=== PATIENT | female | born 1975 | race Caucasian/White ===

== ENCOUNTER 2016-07-21 09:40 | Emergency (ER) | payer SELFPAY ==
[2016-07-21 09:46] VITALS: BP 147/99
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
--- NOTE | 2016-07-21 10:32 | RAD ---
INDICATION: Left knee injury. TECHNIQUE: 4 views of the left knee were obtained. FINDINGS: The bones are in normal alignment. No joint effusion or fracture is seen. Joint spaces appear maintained. IMPRESSION: NO EVIDENCE FOR FRACTURE.
== END 2016-07-21 10:36 | disposition home or self-care (01) ==
LOC: ED 09:40
DX: M25.562 Pain in left knee (principal); V89.2XXA Person injured in unspecified motor-vehicle accident, traffic, initial encounter; Y93.9 Activity, unspecified; Y92.9 Unspecified place or not applicable
CPT/HCPCS: 99281

== ENCOUNTER 2017-01-09 09:21 | Emergency (ER) | payer BC ==
[2017-01-09] MEDS ORDERED: NS 0.9% 1000 ML* 2,000 ML IV ONE (10:10)
[2017-01-09 10:46] LABS: Hematocrit 39 % (35-47); Hemoglobin 13.4 g/dl (12.0-16.0); Mean Corpuscular HGB Conc 34 g/dl (31-36); Mean Corpuscular Hemoglobin 30 pg (27-31); Mean Corpuscular Volume 88 fL (80-97); Mean Platelet Volume 9 um3 (7.4-10.4); Red Blood Count 4.47 10^6/ul (4.0-5.4); Red Cell Distribution Width 13 % (10.5-15)
--- NOTE | 2017-01-09 10:59 | RAD ---
INDICATION: Cough, chest congestion, weakness. COMPARISON: No relevant prior exams available on the [facility] for comparison. TECHNIQUE: Dual energy PA and routine lateral views of the chest were obtained. REPORT: Mild prominence of the interstitial markings and upper lung zone rarefaction. No alveolar consolidation, focal pulmonary lesion, pleural effusion, pneumothorax. The heart, pulmonary vasculature, and mediastinal contours are unremarkable. Gallbladder fossa surgical clips. Unremarkable soft tissue contours and osseous structures. IMPRESSION: 1. Stigmata of potential obstructive lung disease. 2. No compelling evidence for pneumonia.
[2017-01-09 11:03] LABS: Albumin 3.7 g/dL (3.2-5.2); BUN/Creatinine Ratio 10.7 (8-20); C Reactive Protein 93.09 mg/L (< 5.00); Calcium 9.2 mg/dL (8.6-10.3); EGFR Non-African American 84.7 (>60); Globulin 3.2 g/dL (2-4); Magnesium 1.9 mg/dL (1.9-2.7); Potassium 3.3 mmol/L (3.5-5.0); Total Bilirubin 0.4 mg/dL (0.2-1.0); Total Protein 6.9 g/dL (6.4-8.9)
[2017-01-09 11:04] LABS: Urine Bilirubin Negative (Negative); Urine Glucose Negative (Negative); Urine Nitrite Negative (Negative)
[2017-01-09 11:31] LABS: TSH (Thyroid Stimulating Horm) 3.79 mcIU/mL (0.34-5.60)
[2017-01-09] MEDS ORDERED: Potassium Chlor TAB* 20 MEQ TAB.ER PO ONE (12:37)
[2017-01-09 13:06] VITALS: BP 104/61
--- NOTE | 2017-01-10 08:37 | ED ---
Kenneth Mehta Angela, scribed for Dg Aleman MD on 01/09/17 at 1007 . Complex/Multi-Sys Presentation - HPI Summary HPI Summary: This pt is a 41 y/o female presenting to [facility] c/o general malaise, fatigue, body aches, fevers over the last 1.5 weeks. Pt states she went to [facility] in [place] 2 days ago (on Sunday) and was prescribed doxycycline. She notes no improvement with doxycycline. Pt reports associated symptoms of sore throat, headaches, neck pain, back ache, swollen glands. Pt notes she couldn't swallow for a couple of days secondary to swollen glands. Today she c/o chest pain and non-productive cough. She denies nausea, vomiting, diarrhea, dysuria, post nasal drip, ear ache. Pt notes her sore throat has almost resolved. Pt has also taken ibuprofen and Nyquil. - History Of Current Complaint Chief Complaint: EDGeneral Time Seen by Provider: 01/09/17 09:58 Hx Obtained From: Patient Onset/Duration: Gradual Onset, Lasting Days, Still Present Timing: Constant, Days Location: Pain At: - body aches Associated Signs And Symptoms: Positive: Headache, Cough - non-productive, Chest Pain, Back Pain, Fever, Other - general malaise, body aches, sore throat, neck pain, swollen glands. Negative: Nausea, Vomiting, Diarrhea, Dysuria - Allergies/Home Medications Allergies/Adverse Reactions: Allergies Allergy/AdvReac Type Severity Reaction Status Date / Time Oxycodone [From Percocet] Allergy Anaphylatic Verified 01/09/17 09:46 Shock PMH/Surg Hx/FS Hx/Imm Hx Endocrine/Hematology History: Denies: Hx Anticoagulant Therapy Cardiovascular History: Denies: Hx Hypertension Infectious Disease History: No Infectious Disease History: Denies: Traveled Outside the [place] in Last 30 Days - Family History Known Family History: Positive: Hypertension - Social History Alcohol Use: Occasionally Substance Use Type: Reports: None Smoking Status (MU): Never Smoked Tobacco Review of Systems Constitutional: Other - general malaise Positive: Fever, Fatigue. Negative: Chills ENT: Other - swollen glands Positive: Sore Throat - almost resolved now. Negative: Ear Ache, Other - post nasal drip Positive: Chest Pain Positive: Cough - non-productive Negative: Vomiting, Diarrhea, Nausea Negative: dysuria Musculoskeletal: Other - neck pain, back pain Positive: Myalgia Positive: Headache All Other Systems Reviewed And Are Negative: Yes Physical Exam - Summary Physical Exam Summary: VITAL SIGNS: Reviewed. GENERAL: Patient is a well-developed female, who appears tired and fatigued, lying comfortable in the stretcher. Patient is not in any acute respiratory distress. HEAD AND FACE: No signs of trauma. No ecchymosis, hematomas or skull depressions. No sinus tenderness. EYES: PERRLA, EOMI x 2, No injected conjunctiva, no nystagmus. EARS: Hearing grossly intact. Ear canals and tympanic membranes are within normal limits. MOUTH: Oropharynx within normal limits. NECK: Supple, trachea is midline, no adenopathy, no JVD, no carotid bruit, no c- spine tenderness, neck with full ROM. CHEST: Symmetric, no tenderness at palpation LUNGS: Clear to auscultation bilaterally. No wheezing or crackles. CVS: Regular rate and rhythm, S1 and S2 present, no murmurs or gallops appreciated. ABDOMEN: Soft, non-tender. No signs of distention. No rebound no guarding, and no masses palpated. Bowel sounds are normal. EXTREMITIES: FROM in all major joints, no edema, no cyanosis or clubbing. NEURO: Alert and oriented x 3. No acute neurological deficits. Speech is normal and follows commands. SKIN: Dry and warm Triage Information Reviewed: Yes Vital Signs On Initial Exam: Initial Vitals Temp Pulse Resp BP Pulse Ox 98.4 F 70 18 136/89 98 01/09/17 09:24 01/09/17 09:24 01/09/17 09:24 01/09/17 09:24 01/09/17 09:24 Vital Signs Reviewed: Yes - Rajesh Coma Scale Coma Scale Total: 15 Diagnostics - Vital Signs Vital Signs Temp Pulse Resp BP Pulse Ox 01/09/17 09:49 77 97 01/09/17 09:47 124/83 01/09/17 09:24 98.4 F 70 18 136/89 98 - Laboratory Result Diagrams: 01/09/17 10:27 01/09/17 10:27 Lab Statement: Any lab studies that have been ordered have been reviewed, and results considered in the medical decision making process. - Radiology Chest XR Xray Interpretation: Positive (See Comments) - IMPRESSION: 1. Stigmata of potential obstructive lung disease. 2. No compelling evidence for pneumonia. ED physician has reviewed this radiology report and agrees. Radiology Interpretation Completed By: Radiologist - EKG 1059 Cardiac Rate: NL EKG Rhythm: Sinus Rhythm - at 79 bpm EKG Interpretation: No ST elevations. Normal axis Complex Multi-Symp Course/Dx Assessment/Plan: This pt is a 41 y/o female presenting to [facility] c/o general malaise, fatigue, body aches, fevers over the last 1.5 weeks. Pt states she went to [facility] in [place] 2 days ago (on Sunday) and was prescribed doxycycline. She notes no improvement with doxycycline. Pt reports associated symptoms of sore throat, headaches, neck pain, back ache, swollen glands. Pt notes she couldn't swallow for a couple of days secondary to swollen glands. Today she c/o chest pain and non-productive cough. She denies nausea, vomiting, diarrhea, dysuria, post nasal drip, ear ache. Pt notes her sore throat has almost resolved. Pt has also taken ibuprofen and Nyquil. Test results who WBC of of 13, potassium of 3.3, for which the pt was given potassium chloride. Urinalysis is negative for UTI. Chest XR is negative for pneumonia. Pt was hydrated with IV fluids. Pts WBC was 23.5 yesterday and today is 13, therefore the pt is getting improvement from yesterday. At this point the pt will be discharged home. I believe the pts symptoms are likely secondary to a viral infection, which is improving. Pt is hemodynamically stable, alert and oriented x3. - Diagnoses Provider Diagnoses: Weakness Discharge - Discharge Plan Condition: Stable Disposition: HOME Patient Education Materials: Weakness (ED) Referrals: [facility] [Outside] No Primary Care Phys,NOPCP [Primary Care Provider] - Additional Instructions: Please follow up with your primary care provider. RETURN TO THE ED FOR ANY WORSENING SYMPTOMS. The documentation as recorded by the Kenneth jones Angela accurately reflects the service I personally performed and the decisions made by me, Dg Aleman MD.
== END 2017-01-09 13:19 | disposition home or self-care (01) ==
LOC: ED 09:21
DX: R53.1 Weakness (principal)
CPT/HCPCS: 36415; 71020; 80053; 81003; 82550; 83605; 83735; 84443; 84484; 84702; 85025; 86140; 87040; 93005; 96360; 99285; A9270-GY

== ENCOUNTER 2018-03-07 07:40 | Emergency (ER) | payer BC ==
[2018-03-07 08:16] VITALS: BP 139/93
--- NOTE | 2018-03-07 08:33 | UC ---
Complaint Female HPI - HPI Summary HPI Summary: 43-year-old female with 43-year-old healthy female with a complaint of 3 days of dysuria with radiation to her kidneys. She had some leftover amoxicillin that she has started. MD: TANYA; elevated BP. Nurse's note: Pt is unable to urinate, hematuria, back pain, pt had amoxicillin at home, and was taking that, and it is worse now. symptoms started about three days ago. afebrile. - History Of Current Complaint Chief Complaint: UCGU Stated Complaint: URINARY ISSUE Time Seen by Provider: 03/07/18 08:08 Pain Intensity: 4 - Allergies/Home Medications Allergies/Adverse Reactions: Allergies Allergy/AdvReac Type Severity Reaction Status Date / Time acetaminophen [From Percocet] Allergy Anaphylatic Verified 03/07/18 08:16 Shock oxycodone [From Percocet] Allergy Anaphylatic Verified 03/07/18 08:16 Shock Home Medications: Home Medications Amoxicillin 250 mg PO BID 03/07/18 [History Confirmed 03/07/18] Ibuprofen 1,000 mg PO ONCE PRN 03/07/18 [History Confirmed 03/07/18] Montelukast Sodium 10 mg PO DAILY 03/07/18 [History Confirmed 03/07/18] PMH/Surg Hx/FS Hx/Imm Hx - Additional Past Medical History Additional PMH: bladder sling repair; last UTI 23 years ago during ; uses hot tub Previously Healthy: Yes - No kidney disease. Other History Of: Negative For: Anticoagulant Therapy - Surgical History Surgical History: Yes Surgery Procedure, Year, and Place: . tubal. hysterectomy. cholecystectomy - Family History Known Family History: Positive: Hypertension - Social History Occupation: [place]ed Full[place] [employer] [place] Alcohol Use: Occasionally Substance Use Type: None Smoking Status (MU): Never Smoked Tobacco Review of Systems All Other Systems Reviewed And Are Negative: Yes Constitutional: Positive: Negative Skin: Positive: Negative Eyes: Positive: Negative ENT: Positive: Negative Respiratory: Positive: Negative Cardiovascular: Positive: Negative Gastrointestinal: Positive: Negative Genitourinary: Positive: Dysuria, Hematuria, Frequency Motor: Positive: Negative Neurovascular: Positive: Negative Musculoskeletal: Positive: Negative Neurological: Positive: Negative Psychological: Positive: Negative Is Patient Immunocompromised?: No Physical Exam Triage Information Reviewed: Yes Vital Signs: Initial Vital Signs Temp 97.8 F 03/07/18 08:12 Pulse 70 03/07/18 08:12 Resp 18 03/07/18 08:12 BP 139/93 03/07/18 08:12 Pulse Ox 97 03/07/18 08:12 Vital Signs Reviewed: Yes Eye Exam: Normal ENT Exam: Normal Dental Exam: Normal Neck exam: Normal Neck: Positive: 1 Respiratory: Positive: Chest non-tender, Lungs clear, Normal breath sounds, Accessory muscle use Cardiovascular Exam: Normal Cardiovascular: Positive: RRR, No Murmur, Pulses Normal Abdomen Description: Positive: Nontender, No Organomegaly, Soft, CVA Tenderness (R) - hurts "inside" no CVA tenderness to percussion. Negative: CVA Tenderness (L) Bowel Sounds: Positive: Present Musculoskeletal Exam: Normal Neurological Exam: Normal Psychological Exam: Normal Skin Exam: Normal Complaint Female Dx - Course Course Of Treatment: Healthy female complains of days of dysuria and mild, internal, right sided back pain and consistent with an early ascending urinary tract infection. Patient denies fever or previous history of foot pyelonephritis. UA is positive for white cells and blood. There is no protein. The patient is afebrile. There is slight elevation of blood pressure consistent with the patient being urgent/emergent and uncomfortable. I will treat her with Cipro for 7 days and Pyridium. The patient knows to follow up for any increasing temperature, back pain or if this condition does not resolve over the next 2 days. - Differential Dx/Diagnosis Differential Diagnosis/HQI/PQRI: Renal Colic, Urinary Tract Infection, Other - Pyelonephritis, early? on right Provider Diagnosis: Cystitis, Pyelonephritis Discharge - Sign-Out/Discharge Documenting (check all that apply): Patient Departure All imaging exams completed and their final reports reviewed: No Studies - Discharge Plan Condition: Stable Disposition: HOME Prescriptions: Ciprofloxacin TAB* [Cipro Tab*] 500 mg PO BID 7 Days #14 tab MDD 2 Phenazopyridine TAB* [Pyridium TAB*] 200 mdi PO TID #6 tab Patient Education Materials: Urinary Tract Infection in Women (ED), Kidney Infection (ED) Referrals: No Primary Care Phys,NOPCP [Primary Care Provider] - Additional Instructions: WE DISCUSSED: You definitely have a bladder infection, I do may have the beginning of a kidney infection on the right side I will treat you with Cipro, 500 mg, twice a day for 7 days. I will be here in 2 days. Call me if you have any questions or concerns. Follow up if you develop any fever or increasing back pain. I'm also giving U a medication to give you more comfort when you urinate. He shouldn't take this medication for more than 2 days. You shouldn't take this with Percocet. You shouldn't take this if you are allergic to acetaminophen. Should begin to feel better within the next 2 days. - Billing Disposition and Condition Condition: STABLE Disposition: Home
--- NOTE | 2018-03-08 15:36 | UC ---
- Progress Note Progress Note: urine culture with less than [id number] colonies, d/c cipro Course/Dx - Diagnoses Provider Diagnoses: Cystitis, Pyelonephritis Discharge - Sign-Out/Discharge Documenting (check all that apply): Patient Departure All imaging exams completed and their final reports reviewed: No Studies - Discharge Plan Condition: Stable Disposition: HOME Prescriptions: Ciprofloxacin TAB* [Cipro Tab*] 500 mg PO BID 7 Days #14 tab MDD 2 Phenazopyridine TAB* [Pyridium TAB*] 200 mdi PO TID #6 tab Patient Education Materials: Urinary Tract Infection in Women (ED), Kidney Infection (ED) Referrals: No Primary Care Phys,NOPCP [Primary Care Provider] - Additional Instructions: WE DISCUSSED: You definitely have a bladder infection, I do may have the beginning of a kidney infection on the right side I will treat you with Cipro, 500 mg, twice a day for 7 days. I will be here in 2 days. Call me if you have any questions or concerns. Follow up if you develop any fever or increasing back pain. I'm also giving U a medication to give you more comfort when you urinate. He shouldn't take this medication for more than 2 days. You shouldn't take this with Percocet. You shouldn't take this if you are allergic to acetaminophen. Should begin to feel better within the next 2 days. - Billing Disposition and Condition Condition: STABLE Disposition: Home
== END 2018-03-07 08:59 | disposition home or self-care (01) ==
LOC: UCEAST 07:40
DX: N30.90 Cystitis, unspecified without hematuria (principal); N12 Tubulo-interstitial nephritis, not specified as acute or chronic; Z87.440 Personal history of urinary (tract) infections
CPT/HCPCS: 81003; 87077; 87086; 87186; 99212; G0463